=== PATIENT | female | born 1960 | race Caucasian/White ===

== ENCOUNTER 2023-09-30 09:10 | Outpatient (CLI) | payer MEDICAID | END 2023-09-30 23:59 | disposition home or self-care (01) | LOC: RAD 09:10 | PROVIDERS: ATTEND Student in an Organized Health Care Education/Training Program | DX: M79.671 Pain in right foot (principal) | CPT/HCPCS: 73630 ==

== ENCOUNTER 2024-07-13 08:15 | Day surgery (SDC) | payer MEDICAID ==
[~2024-07-13] VITALS: Ht 170.2 cm; Wt 86.4 kg
[2024-07-13] VITALS (8 sets, daily range): BP systolic 106–146; BP diastolic 49–119; PULSE 61–81; RESP 12–22; TEMP 98.3; O2SAT 96–100
[~2024-07-13 08:15] MED LIST: LISI1TAB53 PO
[2024-07-13] MEDS ORDERED: LIDOcaine 1%/PF 5ML 10 MG/ML VIAL ONE (10:17)
[2024-07-13] MEDS ORDERED: MIDAZolam 1 MG/ML 5ML VIAL ONE (10:17)
[2024-07-13] MEDS ORDERED: fentaNYL/PF 50MCG/1 ML 2ML syringe ONE (10:17)
[2024-07-13] MEDS ORDERED: propofol inj 20 ML IV ONE (10:17)
[2024-07-13] MEDS ORDERED: simethicone 40mg/0.6ml oral drops 30ml ONE (10:22)
== END 2024-07-13 11:55 | disposition home or self-care (01) ==
LOC: GI LAB 08:15
PROVIDERS: ATTEND Internal Medicine Gastroenterology
DX: R11.2 Nausea with vomiting, unspecified (principal); K57.30 Diverticulosis of large intestine without perforation or abscess without bleeding; I10 Essential (primary) hypertension; Z79.899 Other long term (current) drug therapy
CPT/HCPCS: 43239; 45378; J2250; J2704; J3010; J3490; J7030; Z7512; A4620